=== PATIENT | female | born 1945 | race Caucasian/White ===

== ENCOUNTER → 2017-03-28 | Outpatient (CLI) | payer MEDICARE ==
[~2017-03-28] MED LIST: QUIN1TAB6 PO; SIMV10TA3 PO
== END | disposition home or self-care (01) ==
LOC: CFH 08:22
PROVIDERS: ATTEND Surgery
DX: N64.89 Other specified disorders of breast (principal); Z85.3 Personal history of malignant neoplasm of breast
CPT/HCPCS: 76641; G0204

== ENCOUNTER → 2017-04-04 | Outpatient (CLI) | payer MEDICARE | END | disposition home or self-care (01) | LOC: CFH 08:31 | PROVIDERS: ATTEND Internal Medicine Hematology & Oncology | DX: Z13.820 Encounter for screening for osteoporosis (principal); M85.88 Other specified disorders of bone density and structure, other site; C50.911 Malignant neoplasm of unspecified site of right female breast | CPT/HCPCS: 77080 ==

== ENCOUNTER → 2017-04-07 | Outpatient (CLI) | payer MEDICARE ==
[~2017-04-07] MED LIST changes: +LIDOCAINE 1%-EPI 1:100K, 20ML ONE; +SODIUM BICARBONATE 4.2%, 5ML ONE
== END | disposition home or self-care (01) ==
LOC: CFH 08:01
PROVIDERS: ATTEND Surgery
DX: N63 Unspecified lump in breast (principal); Z85.3 Personal history of malignant neoplasm of breast; Z98.890 Other specified postprocedural states
CPT/HCPCS: 19083; 88305; G0206; J3490

== ENCOUNTER → 2018-03-26 | Outpatient (CLI) | payer MEDICARE ==
[~2018-03-26] MED LIST changes: -LIDOCAINE 1%-EPI 1:100K, 20ML ONE; +QUIN1TAB17 PO; -QUIN1TAB6 PO; -SODIUM BICARBONATE 4.2%, 5ML ONE
== END | disposition home or self-care (01) ==
LOC: CFH 12:18
PROVIDERS: ATTEND Surgery
DX: Z08 Encounter for follow-up examination after completed treatment for malignant neoplasm (principal); Z85.3 Personal history of malignant neoplasm of breast
CPT/HCPCS: 77066

== ENCOUNTER → 2018-04-04 | Outpatient (CLI) | payer MEDICARE ==
[~2018-04-04] MED LIST changes: +ANAS1TAB PO; +ASPI-621 PO; +BILBERRY PO; +CALCIUM PO; +DHA PO; +DIPH25CA61 PO; +DORZ10DR7 EACHEYE; +GLUC-34 PO; +MIRALAX PO; +OMEGA EPA PO; +TUMERIC CURCUMIN PO
[2018-04-04 09:56] LABS: MICROSCOPIC NOT IND
[2018-04-04 09:58] LABS: CULTURE INDICATED? NO
[2018-04-04 10:07] LABS: ALANINE AMINOTRANSFERASE 29 U/L (12-78); ANION GAP 5 mmol/L (5-15); CALCIUM 9.1 mg/dL (8.5-10.1); CHLORIDE 109 mmol/L (98-107); CREATININE 0.62 mg/dL (0.55-1.02)
[2018-04-04 10:08] LABS: ALKALINE PHOSPHATASE 76 U/L (45-117); BILIRUBIN,TOTAL 0.5 mg/dL (0.2-1.0); TOTAL PROTEIN 7.6 g/dL (6.4-8.2)
== END | disposition home or self-care (01) ==
LOC: STAR 08:59
PROVIDERS: ATTEND Orthopaedic Surgery
DX: Z01.818 Encounter for other preprocedural examination (principal); M17.11 Unilateral primary osteoarthritis, right knee
CPT/HCPCS: 36415; 80053; 81003; 87081; 93005

== ENCOUNTER 2018-04-12 05:16 | Inpatient (IN) | payer MEDICARE ==
[~2018-04-12] VITALS: Ht 154.9 cm; Wt 61.0 kg
[2018-04-12] MEDS ORDERED: LACTATED RINGERS 1,000 ML IV SCH (05:58)
[2018-04-12] MEDS ORDERED: GABAPENTIN 300 MG CAPSULE PO ONE (06:00)
[2018-04-12] MEDS ORDERED: ACETAMINOPHEN 500 MG TABLET PO ONE (06:00)
[2018-04-12] MEDS ORDERED: ONDANSETRON ODT 8 MG PO ONE (06:00)
[2018-04-12] MEDS ORDERED: LIDOCAINE GEL 2%, 5ML ONE (06:16)
[2018-04-12] MEDS ORDERED: TRANEXAMIC ACID 100 MG/ML, 10ML ONE (06:16)
[2018-04-12] MEDS ORDERED: FENTANYL PF 100 MCG/2ML ONE (06:17)
[2018-04-12] MEDS ORDERED: MIDAZOLAM 1 MG/ML, 2ML ONE (06:17)
[2018-04-12] MEDS ORDERED: PROMETHAZINE 25 MG/ML, 1ML IM PRN (07:00)
[2018-04-12] MEDS ORDERED: CEFAZOLIN PMX 1GM/50ML 50 ML IVPB SCH (07:00)
[2018-04-12] MEDS ORDERED: PROMETHAZINE 12.5 MG SUPP PR PRN (07:00)
[2018-04-12] MEDS ORDERED: BISACODYL 10 MG SUPP PR PRN (07:00)
[2018-04-12] MEDS ORDERED: SENNA/DOCUSATE TABLET PO PRN (07:00)
[2018-04-12] MEDS ORDERED: ONDANSETRON 4 MG TABLET PO PRN (07:00)
[2018-04-12] MEDS ORDERED: ONDANSETRON 2MG/ML, 2ML IV PRN (07:00)
[2018-04-12] MEDS ORDERED: MAGNESIUM HYDROXIDE 8%, 30ML UDC PO PRN (07:00)
[2018-04-12] MEDS ORDERED: ACETAMINOPHEN 650 MG/20.3 ML UDC PO PRN (07:00)
[2018-04-12] MEDS ORDERED: morphine SULFATE 10 MG/ML, 1ML IV PRN (07:00)
[2018-04-12] MEDS ORDERED: SCOPOLAMINE PATCH, 1.5MG PATCH.TD72 TD PRN ×2 (07:00→07:30)
[2018-04-12] MEDS ORDERED: DIPHENHYDRAMINE 25 MG CAPSULE PO PRN (07:00)
[2018-04-12] MEDS: HYDROcodone/APAP 10/325 MG TABLET PO SCH ×5 (07:00→23:19)
[2018-04-12] MEDS ORDERED: FENTANYL PF 100 MCG/2ML IV PRN (07:30)
[2018-04-12] MEDS ORDERED: HYDROmorphone 1 MG/ML, 1ML IV PRN (07:30)
[2018-04-12] MEDS ORDERED: OXYcodone 5 MG/5 ML ORAL.SOL UDC PO PRN (07:30)
[2018-04-12] MEDS ORDERED: PROMETHAZINE 25 MG/ML, 1ML IV PRN (07:30)
[2018-04-12] MEDS ORDERED: LABETALOL 5MG/ML, 20ML IV PRN (07:30)
[2018-04-12] MEDS ORDERED: EPHEDRINE 50 MG/ML, 1ML IM PRN (07:30)
[2018-04-12] MEDS ORDERED: ALBUTEROL/IPRATROPIUM 2.5MG/0.5MG, 3 ML NPPB PRN (07:30)
[2018-04-12] MEDS ORDERED: hydrALAzine 20 MG/ML, 1ML IV PRN (07:30)
[2018-04-12] MEDS ORDERED: DIAZEPAM 5 MG/ML, 2ML IVPush PRN (07:30)
[2018-04-12] MEDS ORDERED: MEPERIDINE/PF 25MG/0.5ML IVPush PRN (07:30)
[2018-04-12] MEDS ORDERED: MIDAZOLAM 1 MG/ML, 2ML IV PRN (07:30)
[2018-04-12] MEDS ORDERED: PROPOFOL 50 ML ONE (07:30)
[2018-04-12] MEDS ORDERED: DEXAMETHASONE 4 MG/ML, 1ML ONE (07:36)
[2018-04-12] MEDS ORDERED: PROPOFOL 10 MG/ML, 20ML ONE (07:36)
[2018-04-12] MEDS ORDERED: ONDANSETRON 2MG/ML, 2ML ONE (07:36)
[2018-04-12] MEDS ORDERED: LIDOCAINE-MPF 2% ,5ML ONE (07:36)
[2018-04-12] MEDS ORDERED: CEFAZOLIN 1,000 MG ONE (07:36)
[2018-04-12] MEDS ORDERED: BUPIVACAINE/PF 0.25% ONE (07:36)
[2018-04-12] MEDS ORDERED: morphine SULFATE 10 MG/ML, 1ML ONE (08:31)
[2018-04-12] MEDS ORDERED: HYDROcodone/APAP 7.5-325MG/15ML UDC ONE (08:32)
[2018-04-12] MEDS: MORPHINE SULFATE 4 MG/ML, 1ML IVPush PRN ×2 (08:36→08:48)
[2018-04-12] MEDS ORDERED: HYDROcodone/APAP 7.5-325MG/15ML UDC PO PRN (09:00)
[2018-04-12] MEDS ORDERED: ASPIRIN 81 MG TABLET EC PO SCH (09:00)
[2018-04-12] MEDS: DOCUSATE 100 MG CAPSULE PO SCH ×2 (09:00→21:40)
[2018-04-12] MEDS: TEMPLATE NON-FORMULARY MED. (Dorzolamide Hcl/Timolol Maleat (Dorzolamide-Timolol Eye Drops EACHEYE SCH (09:00)
[2018-04-12] MEDS: D5%-0.45% NACL 1,000 ML IV SCH ×2 (13:04→23:20)
[2018-04-12 14:00] VITALS: BP 108/59
[2018-04-12 20:00] VITALS: BP 122/72
[2018-04-12] MEDS ORDERED: DIPHENHYDRAMINE 25 MG CAPSULE PO SCH (21:00)
[2018-04-12] MEDS ORDERED: HYDROCHLOROTHIAZIDE 25 MG TABLET PO SCH (21:00)
[2018-04-12] MEDS ORDERED: QUINAPRIL 20MG TABLET PO SCH (21:00)
[2018-04-12] MEDS ORDERED: ANASTROZOLE 1 MG TABLET PO SCH (21:00)
[2018-04-12] MEDS ORDERED: SIMVASTATIN 10 MG TABLET PO SCH (21:00)
[2018-04-12] MEDS ORDERED: CEFAZOLIN 1,000 MG in SODIUM CHLORIDE 0.9% 50 ML IV ONE (23:20)
[2018-04-13] VITALS: BP 94/53
[2018-04-13] MEDS: HYDROcodone/APAP 10/325 MG TABLET PO SCH ×2 (02:07→06:06)
[2018-04-13 04:00] VITALS: BP 85/46
[2018-04-13 04:14] VITALS: BP 91/50
[2018-04-13] MEDS ORDERED: ASPIRIN 325 MG TABLET EC PO SCH ×2 (06:00→18:00)
[2018-04-13] MEDS ORDERED: KETOROLAC 30 MG/1 ML IV SCH (07:00)
[2018-04-13 07:21] VITALS: BP_SYST 102; BP_SYST 96; BP_DIAS 59; BP_DIAS 63
[2018-04-13] MEDS: TEMPLATE NON-FORMULARY MED. (Dorzolamide Hcl/Timolol Maleat (Dorzolamide-Timolol Eye Drops EACHEYE SCH (08:48)
[2018-04-13] MEDS: DOCUSATE 100 MG CAPSULE PO SCH (08:49)
[2018-04-13] MEDS: D5%-0.45% NACL 1,000 ML IV SCH (08:49)
[2018-04-13] MEDS ORDERED: HYDROcodone/APAP 10/325 MG TABLET PO ONE (11:30)
== END 2018-04-13 12:03 | disposition home or self-care (01) | DRG 470 ==
LOC: OUT 05:16 → ORIP 06:43 → 4NOR 09:45
PROVIDERS: ADMIT Orthopaedic Surgery; ATTEND Orthopaedic Surgery
PROC: 0SRC0J9 Replacement of Right Knee Joint with Synthetic Substitute, Cemented, Open Approach (ICD-10-PCS; principal; 2018-04-12 07:00)
DX: M17.11 Unilateral primary osteoarthritis, right knee (principal); I10 Essential (primary) hypertension; E78.5 Hyperlipidemia, unspecified; Z85.3 Personal history of malignant neoplasm of breast
CPT/HCPCS: C1713; J0690; J1100; J1885; J2250; J2405; J2704; J3010; J3490; Q0162; C1776; J7120; Q0163

== ENCOUNTER 2019-04-17 10:45 | Outpatient (CLI) | payer MEDICARE ==
[~2019-04-17 10:45] MED LIST changes: -ASPI-621 PO; +ASPI81TA45 PO
== END 2019-04-17 23:59 | disposition home or self-care (01) ==
LOC: CFH 10:45
PROVIDERS: ATTEND Surgery
DX: Z12.31 Encounter for screening mammogram for malignant neoplasm of breast (principal)
CPT/HCPCS: 77067

== ENCOUNTER 2020-01-03 18:41 | Emergency (ER) | payer MEDICARE ==
[~2020-01-03] VITALS: Ht 154.9 cm; Wt 61.8 kg
[~2020-01-03 18:41] MED LIST changes: +SIMV10TA18 PO; -SIMV10TA3 PO
--- NOTE | 2020-01-03 19:30 | NUR ---
PT TO ROOM 23 PER ARTURO. PT WAS HOME EARLIER, AND AFTER TAKING HER BP, BECAME ANXIOUS AND CONTINUED TO TAKE HER BP, EVENTUALLY GETTING A DBP OF 118, MAKING THE PATIENT AFRAID SHE WAS GOING TO HAVE A STROKE. BP UPON ARRIVAL LOWER THAN HER READINGS. EDUCATION GIVEN ON HOW AND WHEN TO CHECK BP'S AND WHAT THE VALUES CAN MEAN. PA IN TO ASSESS PATIENT.
--- NOTE | 2020-01-03 19:51 | NUR ---
DISCHARGE INSTRUCTIONS GIVEN TO PATIENT, INCLUDING EDUCATION WITH QUESTION AND ANSWERS. PT VERBALIZES UNDERSTANDING OF ALL INSTRUCTIONS. PT AMBULATED OUT OF ED WITH STRONG STEADY GAIT.
[2020-01-03 19:52] VITALS: BP 146/91
== END 2020-01-03 19:59 | disposition home or self-care (01) ==
LOC: ED 19:53
DX: I10 Essential (primary) hypertension (principal); R94.31 Abnormal electrocardiogram [ECG] [EKG]
CPT/HCPCS: 93005; 99283

== ENCOUNTER 2020-03-12 18:17 | Emergency (ER) | payer MEDICARE ==
[~2020-03-12] VITALS: Ht 154.9 cm; Wt 60.8 kg
--- NOTE | 2020-03-12 19:00 | NUR ---
THIS IS A 74 YO FEMALE COMING IN FOR RIGHT SIDED FLANK PAIN X10 DAYS, SAW UROLOGIST, AFSHAN TO SCHEDULE CT SCAN FOR THE NEXT MONTH WITH UROLOGIST. PATIENT STATES PAIN INS INTERMITTENT, TODAY STARTED AT 0400 AND HAS BEEN A CONSTANT 4/10 PAIN ALL DAY. C/O NAUSEA, NO VOMITING. STATES LAST UA SAID THERE WAS BLOOD IN URINE, NONE VISIBLE PER PATIENT. DENIES PAIN WITH URINATION. SPO2 AND BP MONITORING IN PLACE.
[2020-03-12] MEDS ORDERED: KETOROLAC 30 MG/1 ML IVPush ONE (19:30)
--- NOTE | 2020-03-12 19:32 | NUR ---
PATIENT AMBULATORY WITH STEADY GAIT TO RESTROOM. UA CUP AND INSTRUCTIONS PROVIDED
[2020-03-12] MEDS ORDERED: KETOROLAC 30 MG/1 ML ONE (19:36)
--- NOTE | 2020-03-12 19:45 | NUR ---
PIV PLACED, PATIENT MEDICATED PER EMAR. UA COLLECTED AND SENT
[2020-03-12 19:53] LABS: BASOPHILS # (AUTO) 0.03 x10^3/uL (0-0.1); BASOPHILS % (AUTO) 0 % (0-1); EOSINOPHILS # (AUTO) 0.09 x10^3/uL (0-0.4); EOSINOPHILS % (AUTO) 1 % (1-7); LYMPHOCYTES % (AUTO) 20 % (22-44); MD NO; MEAN CORPUSCULAR HEMOGLOBIN 31.3 pg (27.0-34.8); MEAN CORPUSCULAR HGB CONC 33.1 g/dL (32.4-35.8); MEAN CORPUSCULAR VOLUME 94.7 fL (80-100); MEAN PLATELET VOLUME 8.5 fL (7.4-10.4); MONOCYTES # (AUTO) 0.46 x10^3/uL (0.2-0.8); MONOCYTES % (AUTO) 7 % (2-9); NEUTROPHILS # (AUTO) 4.72 x10^3/uL (1.8-6.8); NEUTROPHILS % (AUTO) 72 % (42-75); PLATELET COUNT 156 x10^3/uL (130-400); RED BLOOD COUNT 4.07 x10^6/uL (3.82-5.3); RED CELL DISTRIBUTION WIDTH 13.9 % (9.6-15.2)
[2020-03-12 19:55] LABS: MICROSCOPIC NOT IND
[2020-03-12 19:58] LABS: ANION GAP 4 mmol/L (5-15); CALCIUM 9.3 mg/dL (8.5-10.1); CHLORIDE 107 mmol/L (98-107)
[2020-03-12 20:02] LABS: ALANINE AMINOTRANSFERASE 24 U/L (12-78); ALKALINE PHOSPHATASE 75 U/L (45-117); BILIRUBIN,TOTAL 0.9 mg/dL (0.2-1.0); CREATININE 0.82 mg/dL (0.55-1.02); TOTAL PROTEIN 7.6 g/dL (6.4-8.2)
[2020-03-12 20:22] LABS: CULTURE INDICATED? NO
[2020-03-12 20:50] VITALS: BP 149/69
--- NOTE | 2020-03-12 20:51 | NUR ---
PATIENT RESTING ON GURNEY, RESPIRATIONS EVEN AND UNLABRED. MONITORING IN PLACE, VSS
--- NOTE | 2020-03-12 21:10 | NUR ---
Patient/Caregiver given discharge instructions and they have confirmed that they understand the instructions. Patient ambulatory with steady gait.
== END 2020-03-12 21:13 | disposition home or self-care (01) ==
LOC: ED 20:50
DX: M54.5 Low back pain (principal); R10.9 Unspecified abdominal pain; R31.9 Hematuria, unspecified; I10 Essential (primary) hypertension; Z90.710 Acquired absence of both cervix and uterus
CPT/HCPCS: 36415; 74176; 80053; 81003; 85025; 96374; 99284; J1885

== ENCOUNTER 2020-04-22 08:50 | Outpatient (CLI) | payer MEDICARE | END 2020-04-22 23:59 | disposition home or self-care (01) | LOC: CFH 08:50 | PROVIDERS: ATTEND Surgery | DX: Z12.31 Encounter for screening mammogram for malignant neoplasm of breast (principal) | CPT/HCPCS: 77067 ==

== ENCOUNTER → 2020-04-23 | Outpatient (CLI) | payer MEDICARE | END | disposition home or self-care (01) | LOC: CVU 13:39 | PROVIDERS: ATTEND Internal Medicine Clinical Cardiac Electrophysiology | DX: I08.8 Other rheumatic multiple valve diseases (principal); I10 Essential (primary) hypertension; E78.5 Hyperlipidemia, unspecified | CPT/HCPCS: 93306; 93356 ==

== ENCOUNTER → 2021-05-05 | Outpatient (CLI) | payer MEDICARE ==
[~2021-05-05] MED LIST changes: -QUIN1TAB17 PO; +QUIN1TAB26 PO
== END | disposition home or self-care (01) ==
LOC: CFH 09:45
PROVIDERS: ATTEND Internal Medicine
DX: Z12.31 Encounter for screening mammogram for malignant neoplasm of breast (principal)
CPT/HCPCS: 77063; 77067